=== PATIENT | male | born 1965 | race Caucasian/White ===

== ENCOUNTER 2016-06-03 14:19 | Emergency (ER) | payer OTHER ==
[~2016-06-03] VITALS: Ht 182.9 cm; Wt 102.1 kg
== END 2016-06-03 16:30 | disposition short-term general hospital (02) ==
LOC: ER 14:19
DX: M54.5 Low back pain (principal); M25.552 Pain in left hip; V89.0XXA Person injured in unspecified motor-vehicle accident, nontraffic, initial encounter
CPT/HCPCS: 73502-LT